=== PATIENT | male | born 1955 | race Caucasian/White ===

== ENCOUNTER → 2017-04-07 | Outpatient (CLI) | payer OTHER ==
[~2017-04-07] MED LIST: ASPIRIN EC81 MG PO; BRILINTA90 MG PO; COLACE100 MG PO; DIOVAN160 MG PO; LASIX20 MG PO; LIPITOR20 M1 PO; LOPRESSOR25 MG PO; MAG-OX-400(241400 MG PO; MIRALAX17 GM PO; PACERONE400 MG PO; PERCOCET 5-3251 EACH PO; PRINIVIL (ZESTR20 MG PO; PROTONIX40 MG PO; RESTORIL15 MG PO; VASOTEC5 MG PO; ZOCOR40 MG PO; ZYLOPRIM300 MG PO
[2017-04-07 12:13] LABS: ALBUMIN 3.3 gm/dL (3.5-5.0); ANION GAP 9.8 (10.0-19.0); CALCIUM 8.4 mg/dL (8.5-10.5); POTASSIUM 3.8 mMol/L (3.7-5.1); TOTAL BILIRUBIN 0.4 mg/dL (0.0-1.5); TOTAL PROTEIN 6.6 g/dL (6.0-8.4)
== END ==
LOC: LNHI 11:55
PROVIDERS: Internal Medicine Interventional Cardiology
DX: E78.5 Hyperlipidemia, unspecified (principal); I25.10 Atherosclerotic heart disease of native coronary artery without angina pectoris

== ENCOUNTER 2017-04-18 12:22 | Observation (INO) | payer OTHER ==
[~2017-04-18] VITALS: Ht 185.4 cm; Wt 148.7 kg
--- NOTE | ~2017-04-18 | ECHO ---
Transthoracic Echocardiography Report (TTE) Demographics Patient Name THOMAS ORDOÑEZ Date of Study 04/18/2017 Patient Number [id number] Visit Number [id number] Date of 1955 Room Number G6316 Gender Male Number Age 62 year(s) Referring Feliciano Steve MD Youth Support Worker Naz Phelps RDCS, RVT, Physician MARY, PHARMACY OPERATIONS SPECIALIST Physician Interpreting Rio Rodríguez MD Agriculture Scientist Physician Donita Ruvalcaba MD Supervising Ordering Kamla Balderas CRNA, MD/MLP Physician Nurse Stress Rn Utilization Management Um Conclusions Contractility Score Summary Normal Left Ventricular contractility was noted. Summary Technically difficult exam. Definity used to better delineate endocardial borders. Adverse reaction with definity: severe back pain, resolved on its own without any intervention, within a few minutes and no residual pain/deficits. Normal LV/RV size and systolic function. The estimated left ventricular ejection fraction is 55-60%. Mild concentric left ventricular hypertrophy. Diastolic assessment reveals Grade II pseudonormal diastolic function . Mild biatrial enlargement. No significant valvular abnormalities. Procedure Type of Study TTE procedure:Echo with Contrast. Procedure Date Date: 04/18/2017 Start: 02:34 PM Study Location: Inpatient Portable Technical Quality: Adequate visualization Indications:Palpitations and Pre-syncope. Appropriate Use Criteria: 8 Patient Status: Routine Rhythm: NSR HR: 70 bpm BP: 149/79 mmHg Allergies - No known allergies. M-Mode/2D Measurements LV Diastolic Dimension: 4.99 cm LV Systolic Dimension: 2.91 cm LV Septum Diastolic: 1.15 cm LV PW Diastolic: 1.13 cm AO Root Dimension: 3.2 cm RV Diastolic Dimension: 2.81 cm LA volume: 75 ml LVOT: 1.8 cm RV Base: 3.53 cm RV Mid: 3.06 cm RV Length: 6.2 cm TAPSE: 2.61 cm TDI-S': 13 cm/s Doppler Measurements AV Peak Velocity: 1.05 m/s MV Peak E-Wave: 1.1 m/s AV Peak Gradient: 4.41 mmHg MV Peak A-Wave: 0.62 m/s LVOT Peak Velocity: 1.1 m/s MV E/A Ratio: 1.78 MV P1/2t: 74 msec PV Peak Velocity: 1.32 m/s A' Septal Velocity: 0.12 m/s Findings Left Ventricle Mild concentric left ventricular hypertrophy. Diastolic assessment reveals Grade II pseudonormal diastolic function . Right Ventricle Normal right ventricle structure and function. Left Atrium The left atrium is mildly dilated. There is no evidence of patent foramen ovale or atrial septal defect by color Doppler. Right Atrium The right atrium is mildly dilated. Mitral Valve MV is grossly normal. Trace MR. Aortic Valve Normal aortic valve structure and function. Tricuspid Valve Normal tricuspid valve structure and function. Pulmonic Valve PV is not well visualized. No PI. Pericardial Effusion No evidence of pericardial effusion. Epicardial fat pad noted. Miscellaneous The ascending aorta, maximum diameter measures 3.5 cm. Pleural Effusion No evidence of pleural effusion. Contractility Score LV regional wall motion:(0-Non visualized 1-Normal 2-Hypokinesis 3-Akinesis 4-Dyskinesis 5-Aneurysm) Signature dtt: BETINA SÁNCHEZ dtd: 04/18/17 [id number] Physician Self Edit
--- NOTE | ~2017-04-18 | CON ---
PATIENT'S NAME: THOMAS GODOY [facility] AGE: 62 Y [address] ROOM: [address] [address] [facility] ADMIT DATE: 04/18/2017 Consultation DISCHARGE DATE: FAMILY PHYSICIAN: Mal Wiggins MD ATTENDING PHYSICIAN: MAUREEN CASON REFERRING PHYSICIAN: Peter Colin MD REFERRING PHYSICIAN: Dr. Cason. REASON FOR CONSULT: Presyncopal episode and fatigue. HISTORY OF PRESENT ILLNESS: Mr. Godoy is a pleasant 62-year-old male with history of coronary artery disease, status post percutaneous intervention of right coronary artery in March [address]-elevation myocardial infarction. The patient stated that 2 days ago, he had an episode of tunnel vision and he was seen in the local emergency room. The patient stated he had workup including CT scan and was informed that the workup was negative and was sent home. Yesterday, he was feeling tired and when his relatives came, they had difficulty arousing him and they had to shake him before he could wake up. He was seen by his primary care physician and in view of his previous history of coronary artery disease, he was admitted for further management. The patient stated that he has been symptomatic since last few weeks with complaints of bloody stools. No history of vomiting. He complained of fatigue. No history of chest pain. He also complained of occasional palpitations. Presently, he is feeling better. REVIEW OF SYSTEMS: The patient stated that he has to use glasses for near vision. No history of dysphagia. No history of nausea or vomiting. No history of diarrhea, however, he has noticed blood in the stools on several occasions. No history of fever. No history of significant weight gain or weight loss. No history of chest pain. No history of syncope. No history of cough or expectoration. No history of hematemesis. History of blood in the stools is present. Review of other systems are essentially negative. PAST MEDICAL HISTORY: 1. Coronary artery disease, status post percutaneous intervention of mid right coronary artery with drug-eluting stent in March 2016. 2. Hypertension. 3. Hyperlipidemia. PAST SURGICAL HISTORY: 1. History of intestinal surgery when he was very young. PATIENT'S NAME: THOMAS GODOY [facility] AGE: 62 Y [address] ROOM: [address] [address] LOCATION: [facility] ADMIT DATE: 04/18/2017 Consultation DISCHARGE DATE: FAMILY PHYSICIAN: Mal Wiggins MD ATTENDING PHYSICIAN: MAUREEN CASON 2. History of appendectomy. PERSONAL HISTORY: The patient is . He denied any use. No history of alcohol abuse. FAMILY HISTORY: His mother had coronary artery disease, however, he does not know at what age. CURRENT MEDICATIONS: Include: 1. Temazepam 15 mg at bedtime. 2. Metoprolol tartrate 25 mg b.i.d. 3. Lisinopril 20 mg daily. 4. Furosemide 20 mg daily. 5. Atorvastatin 20 mg daily. 6. Aspirin 81 mg daily. PHYSICAL EXAMINATION: GENERAL: He is awake, alert, and oriented. VITAL SIGNS: Pulse rate is 72 beats per minute, blood pressure is 149/79, and respiratory rate is 16. HEENT: Head is atraumatic and normocephalic. Oral mucosa is moist. NECK: No significant jugular venous distention is present. CARDIOVASCULAR: S1, S2 are audible. They are regular in rate and rhythm with no audible murmur or rub. RESPIRATORY: Bilateral vesicular breath sounds are audible. ABDOMEN: Scar suman from previous surgery is present. Abdomen is soft and nontender. Bowel sounds are present. EXTREMITIES: Showed trace pedal edema. NEUROLOGIC: The patient is awake, alert, and oriented. No focal neurological deficits noted. SKIN: Warm and dry. LABORATORY DATA: Sodium 142, potassium 3.9, chloride 109, CO2 of 28, glucose 111, calcium 8.2, BUN 25, and creatinine 1.2. AST 18, ALT 25, and magnesium 2. White blood cell count 6.7, hemoglobin 14.1, hematocrit 41.5, and platelet count 176. His last echocardiogram in March 2016 showed ejection fraction of 60% and grade 1 diastolic dysfunction. ASSESSMENT: 1. Coronary artery disease, status post percutaneous intervention of right coronary artery with a drug-eluting stent in March 2016. 2. Episode of tunnel vision with borderline hypotension. 3. Palpitations. PATIENT'S NAME: THOMAS GODOY [facility] AGE: 62 Y [address] ROOM: [address] [address] LOCATION: [facility] ADMIT DATE: 04/18/2017 Consultation DISCHARGE DATE: FAMILY PHYSICIAN: Mal Wiggins MD ATTENDING PHYSICIAN: MAUREEN CASON 4. Fatigue. 5. History of recurrent gastrointestinal bleed. 6. Obesity. 7. History of hypertension. PLAN: We will monitor patient on telemetry. Check serial cardiac isoenzymes and EKGs. Patient denied any symptoms suggestive of angina. His fatigue could be secondary to chronic blood loss due to GI bleed. Continue medical therapy for coronary artery disease with aspirin, beta-blockers, and statins. The patient was counseled on coronary artery disease risk factor modification including weight loss. Please consider GI workup in view of recurrent episodes of lower GI bleed/hematochezia per pt. The plan was of care was discussed with the patient and Dr. Colin. COLIN BARNARD MD LY/modl /[id number] d: 04/18/172221 t: 04/21/17 1948, CONSULTATION REPORT
--- NOTE | ~2017-04-18 | DS ---
PATIENT'S NAME: THOMAS ORDOÑEZ [facility] AGE: 62 Y [address] ROOM: [place] [address] LOCATION: [facility] ADMIT DATE: 04/18/2017 Discharge Summary DISCHARGE DATE: 04/20/2017 FAMILY PHYSICIAN: Mal Wiggins MD ATTENDING PHYSICIAN: Andrey Cason PRIMARY DIAGNOSES: 1. Presyncope. 2. Acute lower gastrointestinal bleed. 3. Colon polyps, status post partial polypectomy. 4. Coronary artery disease. 5. Essential hypertension. 6. Morbid obesity. 7. Gouty arthritis. 8. Chronic constipation. OPERATIONS/PROCEDURES: Colonoscopy was performed 04/20/2017 with multiple polypectomy. Remaining polyps were left in place due to size and recent aspirin therapy. HISTORY OF PRESENTING ILLNESS AND REASON FOR ADMISSION: Please refer to the H and P dictated on 04/18/2017. HOSPITAL COURSE: The patient was admitted to the hospital as noted above with a presumptive diagnosis of near-syncope and lower GI bleeding. He was hemodynamically stable over the course of his hospital stay. He was seen in coordination with Gastroenterology as well as Cardiology. No further cardiac workup was recommended. Gastroenterology did recommend to proceed with colonoscopy and this was scheduled for 04/20/2017. Hemoglobin was monitored and remained stable over the course of his hospital stay. He did not have any further episodes of bleeding. His hemoglobin actually trended up from 13.5 at the point of admission to 14.1 by the date of discharge. Colonoscopy was carried out. Multiple polyps were removed endoscopically. There were at least 2 polyps reported to me that were large in size and not able to be removed due to their size and recent aspirin therapy. It was recommended to follow up for polypectomy in 7 to 10 days. By the end of the day on 04/20/2017, it was felt he would be stable enough for discharge to home with plans for close clinical followup with Gastroenterology as well as outpatient followup with his primary care provider, Dr. Mal Wiggins. PATIENT'S NAME: THOMAS ORDOÑEZ [facility] AGE: 62 Y [address] ROOM: [place] [address] LOCATION: [facility] ADMIT DATE: 04/18/2017 Discharge Summary DISCHARGE DATE: 04/20/2017 FAMILY PHYSICIAN: Mal Wiggins MD ATTENDING PHYSICIAN: Andrey Cason DISCHARGE INSTRUCTIONS: DIET: Cardiac prudent as tolerated. ACTIVITY: As tolerated. MEDICATIONS: 1. Allopurinol 300 mg p.o. b.i.d. 2. Atorvastatin 20 mg p.o. q. day. 3. Colace 100 mg p.o. q. day. 4. MiraLAX 17 g p.o. q. day p.r.n. 5. Lasix 20 mg p.o. q. day. 6. Lisinopril 20 mg p.o. q. day. 7. Metoprolol 25 mg p.o. b.i.d. 8. Protonix 40 mg p.o. q. day. 9. Restoril 15 mg p.o. at bedtime. 10. Percocet 5/325 one tablet p.o. q.4 hours p.r.n. pain. FOLLOWUP: He will follow up with Dr. Wiggins in 3 to 5 days. Follow up with Dr. Colin in 1 week. CONDITION ON DISCHARGE: Fair. Total time spent on discharge process 45 minutes. MD DELFIN SILVA/sharee /[id number] d: 04/21/17 0311 t: 04/23/17 1726, DISCHARGE SUMMARY
--- NOTE | ~2017-04-18 | CON ---
PATIENT'S NAME: THOMAS ORDOÑEZ [facility] AGE: 62 Y [address] ROOM: [id number] [place], [place] [address] LOCATION: [facility]PCU ADMIT DATE: 04/18/2017 Consultation DISCHARGE DATE: FAMILY PHYSICIAN: Mal Wiggins MD ATTENDING PHYSICIAN: ANDREY CASON DATE OF CONSULTATION: 04/18/2017 REFERRING PHYSICIAN: Peter Colin MD REFERRING PROVIDER: Andrey Cason MD. REASON FOR CONSULTATION: Bright red blood per rectum and presyncope. HISTORY OF PRESENT ILLNESS: This is a very pleasant, 62-year-old gentleman, with past medical history of coronary artery disease, morbid obesity who states that he has been experiencing bright red blood per rectum for the past 2 to 3 weeks with nearly every stool. He notes that he became lightheaded and dizzy while visiting family in [place]. At that time, he was seen in the emergency room and underwent a CT of the head which was normal. He also did a right lower extremity Doppler study to rule out DVT in the setting of mild right leg swelling that was also negative. The patient was discharged home. He followed up with his primary care on Monday and was noted to continue having bright red blood per rectum. He was then admitted to [facility] for complete workup. He does complain of some palpitations as Cardiology has been consulted for complete evaluation. He does have a history of left heart catheterization, RCA stent placement, previously on Brilinta, now off. He does state that he has been slightly more constipated with slightly more straining. Denies any associated abdominal pain. He does state that he does have some rectal pain with constipation. He denies any history of upper endoscopy or colonoscopy. He currently denies any chest pain, chest pressure, shortness of breath, fever, or chills. His appetite has been stable. He also endorses some swelling in the right lower extremity. PAST MEDICAL HISTORY: Morbid obesity, coronary artery disease, status post PCI in March 2016, chronic gout, hyperlipidemia, constipation, and essential hypertension. 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 PATIENT'S NAME: TREW, [facility] AGE: 62 Y [address] ROOM: [place] [address] LOCATION: [facility]PCU ADMIT DATE: 04/18/2017 Consultation DISCHARGE DATE: FAMILY PHYSICIAN: Mal Wiggins MD ATTENDING PHYSICIAN: ANDREY CASON SOCIAL HISTORY: The patient denies any tobacco use. He previously did utilize chew tobacco, though quit in 1988. Denies any frequent alcohol or illicit drug use. FAMILY HISTORY: The patient's mother had coronary artery disease. He denies any known gastrointestinal diseases or cancers to his knowledge. ALLERGIES: NO KNOWN MEDICATION ALLERGIES. CURRENT MEDICATIONS: Please refer to the medication administration record. REVIEW OF SYSTEMS: A 12-point review of systems was completed. All were negative except for those identified in the history of present illness. PHYSICAL EXAMINATION: GENERAL: A very pleasant, 62-year-old gentleman, lying in bed, who appears to be in no acute distress. VITAL SIGNS: Temperature 97.9, pulse is 78, respirations of 16, blood pressure 154/73, oxygen saturation is 96% on room air. SKIN: [place], warm, dry. No jaundice. HEENT: Head is normocephalic and atraumatic. Pupils are equal, round, and reactive to light. Sclerae are clear and nonicteric. Oral mucosa is pink and moist. No thyromegaly. NECK: Soft and supple. CARDIOVASCULAR: Regular and normal S1, S2. RESPIRATORY: Respirations even and unlabored. Lungs are clear to auscultation. ABDOMEN: Soft, round, obese, nontender, nondistended. Bowel sounds are positive. MUSCULOSKELETAL: No muscle weakness or atrophy. EXTREMITIES: No edema. NEUROLOGIC: Grossly nonfocal. LABS AND DIAGNOSTICS: White blood cell count of 6.7, hemoglobin is stable of 14.1, hematocrit of 41.5, platelet of 176. Chemistry panel includes glucose of 111, BUN of 25, creatinine 1.2. Sodium 142, potassium of 3.9, chloride of 109, CO2 of 28, albumin of 3.4, AST of 18, ALT of 25, alkaline phosphatase of 122, total bilirubin 0.3. ASSESSMENT AND PLAN: PATIENT'S NAME: THOMAS ORDOÑEZ [facility] AGE: 62 Y [address] ROOM: [place] [id number] LOCATION: [facility] ADMIT DATE: 04/18/2017 Consultation DISCHARGE DATE: FAMILY PHYSICIAN: Mal Wiggins MD ATTENDING PHYSICIAN: ANDREY CASON Again, this is a very pleasant, 62-year-old gentleman, who was admitted with bright red blood per rectum as well as presyncope episode, currently undergoing cardiology evaluation. This patient was discussed with Cardiology as we will go forth with letting them complete workup. At this time, he will undergo a stress test for further evaluation as well as a pending TTE report. If this is negative, the patient will undergo possible colonoscopy and upper endoscopy prior to heart catheterization, if the stress test is positive as well. We will await for Cardiology clearance to go forth with further testing. Thank you for this consult. VENU CUETO APRN FOR MD VALENTINO WATKINS/sharee /[id number] d: 04/19/17 1313 t: 04/21/17 1815, CONSULTATION REPORT
--- NOTE | ~2017-04-18 | HP ---
PATIENT'S NAME: THOMAS ORDOÑEZ [facility] AGE: 62 Y [address] ROOM: [id number] [place], [place] [id number] LOCATION: GPCU ADMIT DATE: 04/18/2017 History & Physical DISCHARGE DATE: FAMILY PHYSICIAN: Mal Wiggins MD ATTENDING PHYSICIAN: MAUREEN ZUNIGA DATE OF SERVICE: 04/18/2017 CHIEF COMPLAINT: Bright red blood per rectum and presyncope. HISTORY OF PRESENT ILLNESS: This is a very pleasant 62-year-old male with past medical history notable for coronary artery disease, morbid obesity with a BMI greater than 45, who has experienced bright red blood per rectum for the last 2 to 3 weeks with nearly every stool. He notes this caused him to be lightheaded and dizzy while out in [place] a couple of days ago and he presented there for evaluation. Records of that visit are still pending, but per patient's report, he underwent a CT scan of the head, which he was told was normal. They did a right lower extremity Doppler study to rule out DVT in the setting of mild right leg swelling and this was also negative. He was told that his blood counts were normal and he was discharged home. Today, he saw his primary care Dr. Mal Wiggins, and noted that he was having ongoing bright red blood per rectum. He has never had a colonoscopy. In addition to the bright red blood, he has noted a pounding sensation in his chest, though he denies any chest pain or symptoms reminiscent of his [place] a year ago, which resulted in left heart catheterization and RCA stent placement. Due to these concerns with ongoing bright red blood per rectum as well as chest pounding sensation, it was felt the patient would best be admitted for further evaluation of source of bleeding and concern for demand ischemia or other cardiac concern given his chest symptoms. The patient is otherwise feeling well and denies any recent fevers, chills, nausea, vomiting, chest pain, shortness of breath. No abdominal pain. No melena. No dysuria. The patient has been more constipated lately and straining with bowel movements. Swelling in the right lower extremity is unchanged and the patient was recently started on Lasix for this. He has no known history of heart failure. PAST MEDICAL HISTORY: 1. Morbid obesity with BMI 45 to 50. 2. Coronary artery disease, status post PCI in March 2016. 3. Chronic gout. 4. Hyperlipidemia. 5. Constipation. 6. Essential hypertension. PATIENT'S NAME: THOMAS ORDOÑEZ [facility] AGE: 62 Y [address] ROOM: [id number] [place], [place] [id number] LOCATION: GPCU ADMIT DATE: 04/18/2017 History & Physical DISCHARGE DATE: FAMILY PHYSICIAN: Mal Wiggins MD ATTENDING PHYSICIAN: MAUREEN ZUNIGA PAST SURGICAL HISTORY: At age 6-week-old, he had abdominal surgery to repair malrotation. He has subsequently had an appendectomy. FAMILY HISTORY: Mom had coronary artery disease, otherwise, reviewed and noncontributory to current presentation. SOCIAL HISTORY: The patient is a lifelong nonsmoker. Did chew tobacco from age 19 until 1988, rarely uses alcohol and endorses about a 6-pack of beer per year. ALLERGIES: NO KNOWN DRUG ALLERGIES. MEDICATIONS: Reviewed from PCP's office, allopurinol, aspirin, atorvastatin, Lasix 20 p.o., lisinopril, metoprolol, pantoprazole, Percocet, and Restoril. REVIEW OF SYSTEMS: Complete review of systems performed and negative except as noted above in HPI. PHYSICAL EXAMINATION: VITAL SIGNS: Blood pressure is 149/79, pulse is 72, temperature is 97.8, respirations 15, saturating 95% on room air. GENERAL: The patient is in no acute distress, lying comfortably in hospital bed. HEAD: Normocephalic, atraumatic. Eyes are pupils equal, round, reactive to light. No conjunctival pallor. Extraocular muscles intact. No scleral icterus. ENT: Moist mucous membranes. No nasal discharge. NECK: Supple. No lymphadenopathy. No thyromegaly. Unable to assess JVD due to neck size. CARDIOVASCULAR: Regular rate and rhythm. No murmurs, rubs, or gallops appreciated. Pulses 2+ bilaterally and radial and dorsalis pedis. CHEST: Respirations are even and nonlabored. LUNGS: Clear to auscultation bilaterally, saturating well on room air. ABDOMEN: Obese, but soft, nondistended. Surgical scars noted in midline as well as horizontally across the lower abdomen without wound or drainage. No focal tenderness. No rebound, guarding, or rigidity. Normoactive bowel sounds. EXTREMITIES: 1+ bilateral lower extremity edema noted without warmth or erythema. RECTAL: Without anal fissure or external hemorrhoids visible on exam. No PATIENT'S NAME: THOMAS ORDOÑEZ [facility] AGE: 62 Y [address] ROOM: [id number] [place], [place] [address] [facility] ADMIT DATE: 04/18/2017 History & Physical DISCHARGE DATE: FAMILY PHYSICIAN: Mal Wiggins MD ATTENDING PHYSICIAN: MAUREEN ZUNIGA blood at rectal opening. No other appreciable positive pertinent findings. NEUROLOGIC: Alert and oriented x3. No focal deficits of strength or sensation. PSYCH: Normal mood and affect. LABORATORY DATA AND IMAGING: Last labs performed in [place] on Monday are not immediately available, last known hemoglobin at PCP's office is 15.7. Labs have been drawn at the time of my evaluation to include CBC, CMS, and a troponin which are currently pending. No imaging results of note aside from the patient reported negative CT of the head as well as negative DVT study of the right lower extremity. ASSESSMENT: 1. GI bleed, presumed lower source. 2. History of coronary artery disease, concern for demand ischemia. 3. Morbid obesity with BMI of 45 to 50. 4. Chronic constipation, potentially opioid induced as the patient is chronically on Percocet. 5. Gout. PLAN: 1. We will admit to inpatient status and consult Gastroenterology for presumed prep tonight and colonoscopy likely in the morning. The patient remains very hemodynamically stable without concerns for acute significant blood loss. We will trend hemoglobins. We will also trend troponins given cardiac symptoms, though these are atypical for coronary ischemia at this point. EKG was normal. We will run gentle fluids at 100 mL per hour and plan to continue clear liquid diet until the point of prep this evening and likely n.p.o. after midnight. We will attempt to obtain records from [place]. With regard to lower extremity edema and heart pounding sensation, we will obtain a transthoracic echocardiogram to rule out cardiomyopathy as contributor to swelling and pounding chest sensation. We will continue home meds for hypertension, hyperlipidemia, and gout, holding aspirin. We will add bowel regimen given chronic narcotic use. 2. The patient is a full code. I spent 35 minutes on date of admission reviewing outside records from PCP's office as well as in [id number] evaluation of the patient. MD SERG REYEZ/sharee PATIENT'S NAME: THOMAS ORDOÑEZ [facility] AGE: 62 Y [address] ROOM: [place] [address] LOCATION: [facility] ADMIT DATE: 04/18/2017 History & Physical DISCHARGE DATE: FAMILY PHYSICIAN: Mal Wiggins MD ATTENDING PHYSICIAN: MAUREEN ZUNIGA /[id number] D: [id number] T: [id number] HISTORY & PHYSICAL
--- NOTE | ~2017-04-18 | ENPV ---
Carotid Duplex Study Demographics Patient Name THOMAS ORDOÑEZ Date of Study 04/19/2017 Patient Number [id number] Gender Male Date of 1955 Age 62 Visit Number [id number] Height 73 Weight 330.01 Number Referring Reji Castellanos Interpreting Rob Kulkarni MD Physician Vincent ARMSTRONG Physician Physician Ordering [facility] Revenue Stamp Clerk Physician Jasmin Kaur MD Streaming Media Specialist Gwen Mansfield, RT,RVT,RDCS Conclusions Summary Bilateral <50% stenosis of the ICA Procedure Type of Study: Cerebral:Carotid, Carotid Doppler Bilateral. Indications for Study:Dizziness. Appropriate Use Criteria:9 Allergies - No known allergies. Patient Status:Routine. Study Location:Inpatient Portable. Technical Quality:Adequate visualization. Velocities are measured in cm/s ; Diameters are measured in cm Carotid Right Measurements Carotid Left Measurements + +--------+--------+ + + + +--------+- -------+ + + !Location !PSV !EDV !Angle !%Stenosis ! !Location !PSV !E DV !Angle !%Stenosis ! + +--------+--------+ + + + +--------+- -------+ + + !Prox CCA !106 !19 !44 ! ! !Prox CCA !156 !3 3 !60 ! ! + +--------+--------+ + + + +--------+- -------+ + + !Dist CCA !85 !20 !60 ! ! !Dist CCA !101 !2 0 !60 ! ! + +--------+--------+ + + + +--------+- -------+ + + !Prox ICA !65 !12 !60 ! ! !Prox ICA !42 !1 3 !36 ! ! + +--------+--------+ + + + +--------+- -------+ + + !Mid ICA !60 !19 !48 ! ! !Mid ICA !71 !2 3 !36 ! ! + +--------+--------+ + + + +--------+- -------+ + + !Dist ICA !61 !19 !48 ! ! !Dist ICA !72 !3 1 !36 ! ! + +--------+--------+ + + + +--------+- -------+ + + !Prox ECA !155 ! !60 ! ! !Prox ECA !110 ! !36 ! ! + +--------+--------+ + + + +--------+- -------+ + + !Vertebral !29 ! !60 ! ! !Vertebral !61 ! !60 ! ! + +--------+--------+ + + + +--------+- -------+ + + - There is antegrade vertebral flow noted on the right side. - There is antegrade verte bral flow noted on the left side. - Add'l Measurements:Subclavian PRV 107 cm/sICAPSV/CCAPSV - Add'l Measurements:Subcl nikita PRV 101 cm/sICAPSV/CCAPSV 0.61.ICAEDV/CCAEDV 1.01. 0.46.ICAEDV/CCAEDV 0.92. Impressions Right Impression Right vertebral antegrade flow. No significant plaque or stenosis seen. No significant elevation in velocities. Left Impression Left vertebral antegrade flow. No significant plaque or stenosis seen. No significant elevation in velocities. Signature dtt: MANPREET SCHAFFER dtd: 04/19/17 0905 Physician Self Edit
[~2017-04-18 12:22] MED LIST changes: -COLACE100 MG PO; -LASIX20 MG PO; -MIRALAX17 GM PO
[2017-04-18 13:22] LABS: BASOPHIL % 0.3 %; EOSINOPHIL # 0.2 K/uL (0.0-0.5); EOSINOPHIL % 2.8 %; HEMATOCRIT 41.5 % (37.0-53.0); HEMOGLOBIN 14.1 g/dL (11.0-16.0); IMMATURE GRANULOCYTE % 0.3 %; LYMPHOCYTE % 15.1 %; MCH 31.3 pg (27.0-34.0); MCV 92.2 fl (83.0-98.0); MONOCYTE # 0.5 K/uL (0.0-1.0); MONOCYTE % 6.7 %; MPV 10.4 fl (9.4-12.4); NEUTROPHIL % 74.8 %; NRBC % 0 /100WBC (0-0.00); PLATELET COUNT 176 K/uL (150-450); RDW-CV 13.9 % (11.9-14.6); WBC 6.7 K/uL (4.0-11.0)
[2017-04-18 13:43] LABS: ALBUMIN 3.4 gm/dL (3.5-5.0); ALK PHOS 122 IU/L (33-138); ALT 25 IU/L (12-78); ANION GAP 8.9 (10.0-19.0); AST 18 IU/L (10-40); BLOOD UREA NITROGEN 25 mg/dL (6-24); CALCIUM 8.2 mg/dL (8.5-10.5); CHLORIDE 109 mMol/L (96-110); CO2 28 mMol/L (22-32); CREATININE 1.2 mg/dL (0.6-1.3); POTASSIUM 3.9 mMol/L (3.7-5.1); SODIUM 142 mMol/L (135-145); TOTAL BILIRUBIN 0.3 mg/dL (0.0-1.5); TOTAL PROTEIN 6.7 g/dL (6.0-8.4)
--- NOTE | 2017-04-18 14:08 | NUR ---
Pt is 62 y/o male admit for rectal bleeding and syncope for hospitalist. No allergies. Lives with at home. Pt alert and oriented x3. Hx htn,CA,stent, syncope,dizziness,bronchitis,pneumonia,gout,hx bowel obstruction,gerd, hyperlipids. Pt states Monday he was sitting watching TV and felt like he could pass out. He reports he was having tunnel vision and he states he's always had rectal bleeding but it's been worse the past 2 weeks. He has hx hemorrhoids. His syncopal episode happened while they were visiting friends and family in [place]. He called unit and was taken to [place] ED where EKG, CT head and lab were done and were normal.
[2017-04-18] MEDS ORDERED: LASIX20 MG PO (15:03)
--- NOTE | 2017-04-18 17:49 | NUR ---
Significant Event: A&O. VSS, AFEBRILE, ROOM AIR. SBA. DENIES FEELING LIGHTHEADED, DIZZY, NAUSEA, VISION CHANGES, OR DIAPHORETIC -SYMPTOMS ASSOCIATED WITH PRE-SYNCOPAL EPISODE MONDAY. NO STOOLS THIS SHIFT, LAST BLOODY STOOL YESTERDAY PM. PT HAD REACTION TO DEFINITY CONTRAST RECEIVED DURING ECHO, SEVERE BACK PAIN, HYPERVENTILATING, TREMBLING. MD NOTIFIED, NO NEW ORDERS, SYMPTOMS SUBSIDED AFTER ABOUT 5 MINUTES. CLEAR LIQUID DIET THEN NPO AFTER MIDNIGHT. Q6 HOURS H&H AND CARDIAC ENZYMES X3 Follow up: NPO FOR TREADMILL STRESS TEST IN AM IF CARDIAC ENZYMES NEGATIVE.
[2017-04-18 19:12] LABS: HEMATOCRIT 39.9 % (37.0-53.0); HEMOGLOBIN 13.3 g/dL (11.0-16.0)
[2017-04-19 01:08] LABS: HEMOGLOBIN 13.9 g/dL (11.0-16.0)
[2017-04-19 03:29] LABS: BASOPHIL % 0.3 %; EOSINOPHIL # 0.2 K/uL (0.0-0.5); EOSINOPHIL % 3.1 %; HEMATOCRIT 40.2 % (37.0-53.0); HEMOGLOBIN 13.5 g/dL (11.0-16.0); IMMATURE GRANULOCYTE % 0.3 %; LYMPHOCYTE # 1.1 K/uL (0.8-4.0); LYMPHOCYTE % 14.4 %; MCHC 33.6 gm/dL (32.0-36.5); MCV 92.4 fl (83.0-98.0); MONOCYTE # 0.6 K/uL (0.0-1.0); MONOCYTE % 7.9 %; MPV 10.7 fl (9.4-12.4); NEUTROPHIL # (ANC) 5.5 K/uL (1.4-9.0); NRBC % 0 /100WBC (0-0.00); PLATELET COUNT 160 K/uL (150-450); RBC 4.35 M/uL (3.50-5.50); RDW-CV 13.9 % (11.9-14.6); WBC 7.5 K/uL (4.0-11.0)
--- NOTE | 2017-04-19 04:26 | NUR ---
A&Ox3. NPO for possible stress test today. 6 beats VTach and 6 beats SVT this shift, asymptomatic. BP 130-140's. HR 60's. Not c/o pain, nausea, or dizziness this shift. Lungs clear/dim on RA. IV to R) forearm running NS @ 100. Up STBA. at bedside.
--- NOTE | 2017-04-19 12:13 | NUR ---
Rounded to see Darrell but he was sleeping when I passed so I plan to stop back by at a later time and visit with him re:dismissal plans. In reviewing his information, it appears that he lives at home in [place] with his [place]. PCP is listed as Dr.Chadd Wiggins. It appears that he will go down for an EGD/Colonoscopy tomorrow. I would imagine he would be able to go home upon dismissal but I will visit with him to confirm this. CM to continue to follow and assist.
--- NOTE | 2017-04-19 19:01 | NUR ---
Significant Event: ALERT & ORIENTED. UP AD YANA. VSS, AFEBRILE, ROOM AIR. NS AT 100 ML/HR. CLEAR LIQUID DIET TODAY, NO BLOOD STOOLS. SUPREP STARTED AT 1800. CONSENT SIGNED FOR EGD/COLONOSOPY TOMORROW. Follow up: DC TO HOME AFTER SCOPES IF OK BY GI
[2017-04-20 04:12] LABS: BASOPHIL % 0.3 %; EOSINOPHIL # 0.2 K/uL (0.0-0.5); EOSINOPHIL % 3.2 %; HEMATOCRIT 40.9 % (37.0-53.0); HEMOGLOBIN 14.1 g/dL (11.0-16.0); IMMATURE GRANULOCYTE % 0.1 %; LYMPHOCYTE % 13.7 %; MCH 31.7 pg (27.0-34.0); MCHC 34.5 gm/dL (32.0-36.5); MCV 91.9 fl (83.0-98.0); MONOCYTE # 0.6 K/uL (0.0-1.0); MONOCYTE % 7.8 %; MPV 10.8 fl (9.4-12.4); NEUTROPHIL # (ANC) 5.7 K/uL (1.4-9.0); NEUTROPHIL % 74.9 %; NRBC % 0 /100WBC (0-0.00); PLATELET COUNT 157 K/uL (150-450); RBC 4.45 M/uL (3.50-5.50); RDW-CV 13.7 % (11.9-14.6); WBC 7.6 K/uL (4.0-11.0)
--- NOTE | 2017-04-20 04:20 | NUR ---
A&Ox3. Suprep for colonoscopy completed. NPO at 0500. Consent signed. C/O head ache, Percocet given at 0435. SBP 150-160s. HR 60s. Lungs clear on RA. IV to R) forearm running NS @ 100. at bedside.
[2017-04-20 04:31] LABS: ALBUMIN 3.6 gm/dL (3.5-5.0); ANION GAP 10.5 (10.0-19.0); CALCIUM 8.3 mg/dL (8.5-10.5); MAGNESIUM 1.9 mg/dL (1.8-2.6); POTASSIUM 3.5 mMol/L (3.7-5.1)
[2017-04-20] MEDS ORDERED: COLACE100 MG PO (15:52)
[2017-04-20] MEDS ORDERED: MIRALAX17 GM PO (15:57)
--- NOTE | 2017-04-20 18:35 | NUR ---
D: PATIENT ALERT AND ORIENTED X3. HAD EGD,COLONSCOPY TODAY. PATIENT REPORTS VOIDING WITHOUT DIFFICULTY PRIOR AND AFTER PROCEDURE, NO BM'S REPORTED. DENIED PAIN WHEN ASKED. TAKING FLUIDS WELL, NO C/O NAUSEA. VSS, AFEBRILE. UP IN ROOM INDEPENDENTLY, TOLERATES WELL, NO C/O DIZZINESS WITH ACTIVITY. DISCHARGE INSTRUCTIONS REVIEWED WITH PATIENT AND , VERBALIZES UNDERSTANDING. PATIENT DISMISSED TO HOME, ACCOMPANIED BY . ASSISTED TO VEHCILE VIA W/C AND TA ASSISTANCE. DISCHARGE INSTRUCTIONS SENT WITH PATIENT.
== END 2017-04-20 18:35 | disposition disaster alternative care site (69) ==
LOC: GPCU 12:22
PROVIDERS: Family Medicine; ADMIT Internal Medicine
PROC: 0DB68ZX Excision of Stomach, Via Natural or Artificial Opening Endoscopic, Diagnostic (ICD-10-PCS; principal; 2017-04-20)
PROC: 0DJD8ZZ Inspection of Lower Intestinal Tract, Via Natural or Artificial Opening Endoscopic (ICD-10-PCS; 2017-04-20)
DX: K29.51 Unspecified chronic gastritis with bleeding (principal); R55 Syncope and collapse; I25.10 Atherosclerotic heart disease of native coronary artery without angina pectoris; I10 Essential (primary) hypertension; E66.01 Morbid (severe) obesity due to excess calories; M10.9 Gout, unspecified; K59.09 Other constipation; E78.5 Hyperlipidemia, unspecified; Z98.890 Other specified postprocedural states; Z86.010 Personal history of colon polyps; Z79.82 Long term (current) use of aspirin; Z79.899 Other long term (current) drug therapy
CPT/HCPCS: C8929; J7030; Q9957

== ENCOUNTER → 2017-04-25 | Outpatient (CLI) | payer OTHER ==
[~2017-04-25] MED LIST changes: +COLACE100 MG PO; +LASIX20 MG PO; +MIRALAX17 GM PO
== END | disposition disaster alternative care site (69) ==
LOC: GRAD 04-20 08:00
DX: S49.92XA Unspecified injury of left shoulder and upper arm, initial encounter (principal); M75.42 Impingement syndrome of left shoulder; M77.8 Other enthesopathies, not elsewhere classified; M75.52 Bursitis of left shoulder